=== PATIENT | female | born 1995 | race African-American/Black ===

== ENCOUNTER 2018-05-29 17:33 | Inpatient (IN) | payer OTHER ==
--- NOTE | 2018-05-29 17:41 | PDOC ---
History of Present Illness - General Stated Complaint: DIS-BREATHER Time Seen by Provider: 05/29/18 17:40 - History of Present Illness Initial Comments: 05/29/18 17:57 The patient is a 22 year old female with a history of Bipolar, Schizophrenia, Asthma s/p Trach who presents from [facility] for evaluation of difficulty breathing. The patient reports a several day history of worsening difficulty breathing with associated productive cough. She was noted to be more lethargic at her GA earlier today prompting her presentation to the ED for further evaluation. She otherwise denies fevers, chills, chest pain, nausea, vomiting, abdominal pain, or changes with urination or bowel movements. Past History - Past Medical History Allergies/Adverse Reactions: Allergies Allergy/AdvReac Type Severity Reaction Status Date / Time clonazepam [From Klonopin] Allergy Verified 05/29/18 19:52 olanzapine [From Zyprexa] Allergy Verified 05/29/18 19:22 peanut Allergy Verified 05/29/18 19:22 ziprasidone [From Geodon] Allergy Verified 05/29/18 19:22 Home Medications: Ambulatory Orders Clonazepam 1 tab PO BID 05/29/18 Clozapine [Versacloz] 1 tab PO BID 05/29/18 Depakote 500 mg PO BID 05/29/18 Depo-Provera 1 ml IM 05/29/18 Desmopressin Acetate 1 tab PO HS 05/29/18 Fluticasone Propionate [Flovent Diskus] 100 mcg IH BID 05/29/18 Ipratropium 0.02% Nebulizer 2.5 ml NEB PRN 05/29/18 [place] Carbonate [Lithobid] 1 tab PO DAILY 05/29/18 Magnesium Hydroxide [Milk of Magnesia] 400 mg PO PRN 05/29/18 Pantoprazole Sodium [Protonix -] 40 mg PO DAILY 05/29/18 Sennosides [Senna Lax] 2 tab PO HS 05/29/18 Topiramate [Topamax] 50 mg PO BID 05/29/18 Clozapine [Clozapine Odt] 2 tab PO BID 05/30/18 Levofloxacin [Levaquin] 500 mg PO DAILY #5 tablet 05/31/18 Pisin[place] Carbonate [Eskalith -] 450 mg PO HS tablet.er 05/31/18 Review of Systems - Review of Systems Comments:: 05/29/18 18:00 Constitutional: No fevers, chills, fatigue, malaise HEENT: No Rhinorrhea, nasal congestion, visual changes Cardiovascular: No chest pain, syncope, palpitations, lightheadedness Respiratory: Cough, SOB, No Hemoptysis, Gastrointestinal: No Abdominal pain, Nausea, Vomiting, Constipation, Diarrhea, Melena Genitourinary: No Dysuria, Frequency, Urgency, Hesitancy, Hematuria, Flank pain Musculoskeletal: No Myalgia, arthralgia Skin: No rashes, itching, bruising, pallor Neurologic: No Headache, Dizziness, Numbness, Weakness, or Tingling Psychiatric: No Hallucinations. No SI or HI *Physical Exam - Physical Exam Comments: 05/29/18 18:01 General Appearance: Nourished. In Mild Apparent Distress HEENT: No Pharyngeal Erythema, Tonsillar Exudate, Tonsillar Erythema Neck: No Cervical Lymphadenopathy Respiratory/Chest: Diffuse Rhonchi and Rales bilaterally on exam. Trach in place with purulent productive sputum. No Wheezing Cardiovascular: Regular Rhythm, Regular Rate. No Murmur, Gallops, Rubs Gastrointestinal/Abdominal: Normal Bowel Sounds, Soft. No Guarding, Rebound, Tenderness Musculoskeletal: No CVA Tenderness Extremity: Normal Capillary Refill Integumentary: Normal Color, Dry, Warm Neurologic: Fully Oriented, Alert, Normal Mood/Affect, Normal Response, Heart Score/ECG Review #1 ECG reviewed & interpreted by me at: 18:02 (Sinus Tachycardia) General ECG Interpretation: Sinus Rhythm, Normal Intervals, No acute ischemic changes ED Treatment Course - LABORATORY CBC & Chemistry Diagram: 05/30/18 11:45 05/30/18 11:45 Medical Decision Making - Medical Decision Making 05/29/18 18:03 The patient is a 22 year old female with a history of Bipolar, Schizophrenia, Asthma s/p Trach who presents from [facility] for evaluation of difficulty breathing. Differential includes but is not limited to: Pneumonia, Asthma, Arrhythmia, Infectious, Metabolic Derangement. Given the patient's history and physical exam, it is possible her symptoms are due to a pneumonia. We will obtain a cbc, cmp, lactate, vbg, ua, urine cultures, blood cultures, chest plain film to evaluate further for possible etiologies. We will treat with iv fluids, vanc, and zosyn. We will continue to monitor and reassess while here in the ED. 05/29/18 20:57 CBC demonstrates and elevated wbc. CMP, lactate are unremarkable. Chest plain film demonstrates a possible right lower lobe infiltrate as preliminarily read by ER physician however we will continue to treat the patient clinically as a pneumonia. We believe that she requires admission for further management. We discussed the case with the admitting team who accepted the patient for admission. *DC/Admit/Observation/Transfer Diagnosis at time of Disposition: Pneumonia Qualifiers: Pneumonia type: due to unspecified organism Laterality: unspecified laterality Lung location: unspecified part of lung Qualified Code(s): J18.9 - Pneumonia, unspecified organism - Discharge Dispostion Disposition: SNF FACILITY Condition at time of disposition: Stable Decision to Admit order: Yes - Prescriptions - Referrals - Patient Instructions - Post Discharge Activity
--- NOTE | 2018-05-29 17:47 | PDOC ---
Attending Attestation - HPI HPI: 05/29/18 18:08 The patient is a 22 year old female with a significant PMH of asthma (s/p trach tube), bipolar disorder, and schizophrenia who presents to the emergency department with worsening shortness of breath beginning within the past week. She states she has had increased difficulty breathing with associated productive cough. The patient denies fevers and chills. She denies nausea, vomiting, or diarrhea. She denies dysuria, urgency, frequency, and hematuria. Allergies: NKA <Mayo Daniels - Last Filed: 05/29/18 18:08> - Resident Resident Name: Rhys Zhou - ED Attending Attestation I have performed the following: I have examined & evaluated the patient, The case was reviewed & discussed with the resident, I agree w/resident's findings & plan, Exceptions are as noted - Physicial Exam PE: 06/02/18 10:17 GENERAL: The patient is in no acute distress. ENT: Ears normal, nares patent, oropharynx clear without exudates. Moist mucous membranes. NECK: Normal range of motion, supple, trach in place LUNGS: Rhoncherous breath sounds bilaterally, no wheezing HEART:Regular rate and rhythm, normal S1 and S2 without murmur, rub or gallop. ABDOMEN: Soft, nontender, normoactive bowel sounds. No guarding, no rebound. EXTREMITIES: Normal range of motion, no edema. NEUROLOGICAL: Cranial nerves II through XII grossly intact. Normal speech. No focal neurological deficits. MUSCULOSKELETAL: Back non-tender to palpation, no CVA tenderness SKIN: Warm, Dry, normal turgor, no rashes or lesions noted. - Medical Decision Making 06/02/18 10:18 22 yo F, h/o trach since age 5 presents to the ER with increased shortness of breath and low grade temperature Likely Bronchitis vs. pneumonia Will do: Labs CXR Tylenol 06/02/18 10:19 Laboratory Tests 05/29/18 05/29/18 18:25 18:25 WBC 12.7 H Hgb 12.8 Hct 39.0 Plt Count 328 Neutrophils % (Manual) 59.0 Band Neutrophils % 4.0 Sodium 142 Potassium 4.6 Chloride 116 H Carbon Dioxide 18 L BUN 11 Creatinine 0.9 Random Glucose 101 CXR no consolitation Will give abx Will admit <Luli Mora - Last Filed: 06/02/18 10:20>
[2018-05-29 18:38] LABS: VENOUS PC02 28.2 mmHg (38-52); VENOUS PH 7.38 (7.32-7.42)
[2018-05-29 18:39] LABS: BASO % 1.3 % (0-2.0); EOS % 3.8 % (0-4.5); HEMOGLOBIN 12.8 GM/dL (10.7-15.3); LYMPH % 31.1 % (8-40); MCH 30.4 pg (25.7-33.7); MEAN CELL VOLUME 92.3 fl (80-96); MEAN PLT VOLUME 8.6 fl (7.5-11.1); MONO % 8.5 % (3.8-10.2); NEUT % 55.3 % (42.8-82.8); PLATELET COUNT 328 K/MM3 (134-434); RBC 4.22 M/mm3 (3.60-5.2); RDW 15.4 % (11.6-15.6); WHITE BLOOD COUNT 12.7 K/mm3 (4.0-10.0)
[2018-05-29 18:56] LABS: PROTHROMBIN TIME (PATIENT) 11.3 SEC (9.7-13.0)
[2018-05-29 18:59] LABS: ACTIVATED PTT 33.2 SECONDS (25.2-36.5)
[2018-05-29 19:09] LABS: ALBUMIN 3.3 g/dl (3.4-5.0); ANION GAP 8 (8-16); BLOOD UREA NITROGEN 11 mg/dL (7-18); CALCIUM 8.8 mg/dL (8.5-10.1); CHLORIDE 116 mmol/L (98-107); CO2 18 mmol/L (21-32); CREATININE 0.9 mg/dL (0.55-1.02); GLUCOSE,RANDOM 101 mg/dL (74-106); SGPT/ALT 17 U/L (12-78); SODIUM 142 mmol/L (136-145)
[2018-05-29 19:19] LABS: BILIRUBIN,TOTAL 0.4 mg/dL (0.2-1.0); POTASSIUM 4.6 mmol/L (3.5-5.1)
[2018-05-29 19:20] LABS: ALK PHOS 84 U/L (45-117); SGOT/AST 23 U/L (15-37); TOT PROT 7.8 g/dl (6.4-8.2)
[2018-05-29] MEDS ORDERED: SODIUM CHLORIDE 1,000 ML IV STA (19:24)
[2018-05-29] MEDS ORDERED: VANCOMYCIN 1,500 MG in DEXTROSE 5%-WATER - 500 ML IVPB ONE (19:30)
[2018-05-29] MEDS ORDERED: PIPERACILLIN/TAZOB 4.5 GM 4.5 GM in DEXTROSE 5%-WATER 100 ML IVPB ONE (19:30)
[2018-05-29] MEDS ORDERED: PIPERACILLIN/TAZOB 4.5 GM 4.5 GM/100 ML BAG IVPB ONE (19:45)
--- NOTE | 2018-05-29 20:06 | HP ---
CHIEF COMPLAINT: Difficulty Breathing, Productive Cough, Lethargy PCP: HISTORY OF PRESENT ILLNESS: 22 y/o young woman PMHx of Asthma s/p Trach (age 5), Bipolar, Schizophrenia. Who presents to the ED with difficulty breathing, productive cough and lethargy per [facility] records. Patient reports having increased difficulty breathing with associated productive cough. The patient denies fevers and chills. She denies nausea, vomiting, or diarrhea. She denies dysuria, urgency, frequency, and hematuria. ER course was notable for: (1) WBC 12.7, no shift (2) T Max 99.9 (3) Chest Xray- image ?RLL Recent Travel: None PAST MEDICAL HISTORY: See HPI PAST SURGICAL HISTORY: See HPI Social History: Smoking: Never Alcohol: None Drugs: None Resides in [facility], supportive care Family History: Non-contributory Allergies clonazepam [From Klonopin] Allergy (Verified 05/29/18 19:52) olanzapine [From Zyprexa] Allergy (Verified 05/29/18 19:22) peanut Allergy (Verified 05/29/18 19:22) ziprasidone [From Geodon] Allergy (Verified 05/29/18 19:22) HOME MEDICATIONS: Home Medications Medication Instructions Recorded Clonazepam 0.5 mg PO 05/29/18 Clonazepam 50 mg PO BID 05/29/18 Clozapine [Versacloz] PO BID 05/29/18 Depakote 500 mg PO BID 05/29/18 Desmopressin Acetate PO HS 05/29/18 Fluticasone Propionate [Flovent 100 mcg IH BID 05/29/18 Diskus] [place] Carbonate [Lithobid] PO DAILY 05/29/18 Magnesium Hydroxide [Milk of 400 mg PO 05/29/18 Magnesia] Sennosides [Senna Lax] 8.6 mg PO 05/29/18 Topiramate [Topamax] PO BID 05/29/18 REVIEW OF SYSTEMS CONSTITUTIONAL: Absent: fever, chills, diaphoresis, generalized weakness, malaise, loss of appetite, weight change HEENT: Absent: rhinorrhea, nasal congestion, throat pain, throat swelling, difficulty swallowing, mouth swelling, ear pain, eye pain, visual changes CARDIOVASCULAR: Absent: chest pain, syncope, palpitations, irregular heart rate, lightheadedness , peripheral edema RESPIRATORY: cough, shortness of breath, wheezing Absent: dyspnea with exertion, orthopnea, stridor, hemoptysis GASTROINTESTINAL: Absent: abdominal pain, abdominal distension, nausea, vomiting, diarrhea, constipation, melena, hematochezia GENITOURINARY: Absent: dysuria, frequency, urgency, hesitancy, hematuria, flank pain, genital pain MUSCULOSKELETAL: Absent: myalgia, arthralgia, joint swelling, back pain, neck pain SKIN: Absent: rash, itching, pallor HEMATOLOGIC/IMMUNOLOGIC: Absent: easy bleeding, easy bruising, lymphadenopathy, frequent infections ENDOCRINE: Absent: unexplained weight gain, unexplained weight loss, heat intolerance, cold intolerance NEUROLOGIC: Absent: headache, focal weakness or paresthesias, dizziness, unsteady gait, seizure, mental status changes, bladder or bowel incontinence PSYCHIATRIC: Absent: anxiety, depression, suicidal or homicidal ideation, hallucinations. PHYSICAL EXAMINATION Vital Signs - 24 hr 05/29/18 17:35 Temperature 99.9 F H Pulse Rate 102 H Respiratory 18 Rate Blood Pressure 120/70 O2 Sat by Pulse 99 Oximetry (%) GENERAL: Severely Obese, asleep but arousable, alert and oriented, in no acute distress HEAD: Normal with no signs of trauma. EYES: Pupils equal, round and reactive to light, extraocular movements intact, sclera anicteric, conjunctiva clear. No lid lag. EARS, NOSE, THROAT: Trach, Dry mucous membranes Ears normal, nares patent, oropharynx clear without exudates. NECK: Normal range of motion, supple without lymphadenopathy, JVD, or masses. LUNGS: Breath sounds coarse crackles with scattered wheeze throughout. No accessory muscle use. HEART: Regular rate and rhythm, normal S1 and S2 without murmur, rub or gallop. ABDOMEN: Obese, soft, nontender, not distended, normoactive bowel sounds, no guarding, no rebound, no masses. No hepatomegaly or splenomegaly. MUSCULOSKELETAL: Normal range of motion at all joints. No bony deformities or tenderness. No CVA tenderness. UPPER EXTREMITIES: 2+ pulses, warm, well-perfused. No cyanosis. No clubbing. No peripheral edema. LOWER EXTREMITIES: 2+ pulses, warm, well-perfused. No calf tenderness. No peripheral edema. NEUROLOGICAL: Cranial nerves II-XII intact. Normal speech. Gait not observed. PSYCHIATRIC: Cooperative. Good eye contact. Appropriate mood and affect. SKIN: Warm, dry, normal turgor, no rashes or lesions noted, normal capillary refill. Laboratory Results - last 24 hr 05/29/18 05/29/18 05/29/18 18:25 18:25 18:25 WBC 12.7 H RBC 4.22 Hgb 12.8 Hct 39.0 MCV 92.3 MCH 30.4 MCHC 33.0 RDW 15.4 Plt Count 328 MPV 8.6 Absolute Neuts (auto) 7.0 Neutrophils % 55.3 Lymphocytes % 31.1 Monocytes % 8.5 Eosinophils % 3.8 Basophils % 1.3 Nucleated RBC % 0 PT with INR 11.30 INR 1.00 PTT (Actin FS) 33.2 VBG pH 7.38 POC VBG pCO2 28.2 L POC VBG pO2 133.0 H Mixed VBG HCO3 16.1 L Sodium Potassium Chloride Carbon Dioxide Anion Gap BUN Creatinine Creat Clearance w eGFR Random Glucose Lactic Acid Calcium Total Bilirubin AST ALT Alkaline Phosphatase Troponin I Total Protein Albumin Serum , Qual 05/29/18 05/29/18 05/29/18 18:25 18:25 18:30 WBC RBC Hgb Hct MCV MCH MCHC RDW Plt Count MPV Absolute Neuts (auto) Neutrophils % Lymphocytes % Monocytes % Eosinophils % Basophils % Nucleated RBC % PT with INR INR PTT (Actin FS) VBG pH POC VBG pCO2 POC VBG pO2 Mixed VBG HCO3 Sodium 142 Potassium 4.6 Chloride 116 H Carbon Dioxide 18 L Anion Gap 8 BUN 11 Creatinine 0.9 Creat Clearance w eGFR > 60 Random Glucose 101 Lactic Acid 1.7 Calcium 8.8 Total Bilirubin 0.4 AST 23 ALT 17 Alkaline Phosphatase 84 Troponin I Total Protein 7.8 Albumin 3.3 L Serum , Qual Negative 05/29/18 18:30 WBC RBC Hgb Hct MCV MCH MCHC RDW Plt Count MPV Absolute Neuts (auto) Neutrophils % Lymphocytes % Monocytes % Eosinophils % Basophils % Nucleated RBC % PT with INR INR PTT (Actin FS) VBG pH POC VBG pCO2 POC VBG pO2 Mixed VBG HCO3 Sodium Potassium Chloride Carbon Dioxide Anion Gap BUN Creatinine Creat Clearance w eGFR Random Glucose Lactic Acid Calcium Total Bilirubin AST ALT Alkaline Phosphatase Troponin I < 0.02 Total Protein Albumin Serum , Qual ASSESSMENT/PLAN: 22 y/o young woman PMHx of: Asthma s/p Trach (age 5), Bipolar, Schizophrenia. Admitted for Pneumonia for further evaluation of their emergent condition. Problem List - Problem (1) Pneumonia Assessment/Plan: - Likely secondary to aspiration - Chest Xray- Image ?RLLL, awaiting official report - WBC 12.7 no L shift, LA-nl - VBG- 7.38/28.2/133 - Blood Cultures, Sputum Culture, Urine Legionella-pending - Given Zosyn and Vancomcyin for MDR/Pseudomonal coverage, will continue - Appreciate ID consult - Monitor CBC, BMP - Monitor vitals Code(s): J18.9 - PNEUMONIA, UNSPECIFIED ORGANISM Qualifiers: Pneumonia type: due to unspecified organism Laterality: unspecified laterality Lung location: unspecified part of lung Qualified Code(s): J18.9 - Pneumonia, unspecified organism (2) Asthma Assessment/Plan: - s/p Trach - Maintain Spo2> 93% - Appreciate Pulm consult - Duonebs - Continue home meds Code(s): J45.909 - UNSPECIFIED ASTHMA, UNCOMPLICATED (3) Tracheostomy care Assessment/Plan: - Aspiration Precautions - Trach and oral suctioning Q shift and prn - Change inner cannula Shiley #6, cuffless QD and prn Code(s): Z43.0 - ENCOUNTER FOR ATTENTION TO TRACHEOSTOMY (4) Bipolar disorder Assessment/Plan: - stable -Continue home meds Code(s): F31.9 - BIPOLAR DISORDER, UNSPECIFIED (5) Schizophrenia Assessment/Plan: - stable - Continue home meds Code(s): F20.9 - SCHIZOPHRENIA, UNSPECIFIED (6) DVT prophylaxis Assessment/Plan: - SCDs - Heparin SQ Code(s): [id number] - Visit type - Emergency Visit Emergency Visit: Yes ED Registration Date: 05/29/18 Care time: The patient presented to the Emergency Department on the above date and was hospitalized for further evaluation of their emergent condition. - New Patient This patient is new to me today: Yes Date on this admission: 05/29/18 - Critical Care Critical Care patient: No Hospitalist Screening - Colonoscopy Questionnaire Colonoscopy Questionnaire: Colonoscopy Questionnaire - Patient: 50 - 75 years old and never had a screening colonoscopy: Unknown History of colon or rectal polyps, or CA: Unknown History of IBD, Crohn's disease or UC: Unknown History of abdominal radiation therapy as a child: Unknown - Relative: 1 with colon or rectal CA, or polyps at age 60 or younger: Unknown Colon or rectal CA diagnosed at age 45 or younger: Unknown Multiple relatives with colon or rectal CA: Unknown - Outcome: Screening Result: Negative Screen
[2018-05-29 20:09] LABS: URINE APPEARANCE CLEAR; URINE BILIRUBIN NEGATIVE (<2.0 mg/dL); URINE COLOR YELLOW; URINE GLUCOSE (UA) NEGATIVE (NEGATIVE); URINE KETONE NEGATIVE (NEGATIVE); URINE LEUK ESTERASE NEGATIVE (NEGATIVE); URINE NITRITE NEGATIVE (NEGATIVE); URINE PROTEIN 1+ (NEGATIVE)
[2018-05-29] MEDS ORDERED: ACETAMINOPHEN 1000 MG/100 ML VIAL (NON FORMULARY) IVPB ONE (20:09)
[2018-05-29 20:13] LABS: EPI CELLS RARE /HPF (FEW); URINE BACTERIA RARE /hpf (NONE SEEN); URINE MUCUS RARE
[2018-05-29] MEDS ORDERED: ACETAMINOPHEN 325 MG TABLET (FP) ONE (20:13)
[2018-05-29] MEDS ORDERED: ACETAMINOPHEN 325 MG TABLET (FP) PO ONE (20:14)
[2018-05-29 20:58] LABS: PLATELET ESTIMATE ADEQUATE
[2018-05-29] MEDS ORDERED: LITHIUM CARBONATE 150 MG CAPSULE PO SCH ×2 (22:00→23:45)
[2018-05-29] MEDS ORDERED: ACETAMINOPHEN 325 MG TABLET (FP) PO PRN (22:44)
[2018-05-29] MEDS ORDERED: ALBUTEROL SO4 0.083% IH SOL 2.5 MG/3 ML VIAL.NEB. NEB PRN (22:44)
[2018-05-29] MEDS ORDERED: ALBUTEROL SO4 2.5/IPRATROPIUM 0.5 INH SOL 3 ML VIAL.NEB. NEB PRN (22:47)
[2018-05-29] MEDS ORDERED: MAGNESIUM HYDROX 2400MG/30ML ORAL SUSPENSION 30 ML CUP PO PRN (23:14)
[2018-05-30] MEDS: HEPARIN NA (PORCINE) 5,000 UNITS/ML 1ML VIAL SQ SCH ×4 (00:29→21:25)
[2018-05-30] MEDS: DESMOPRESSIN ACETATE 0.2 MG TABLET PO SCH (00:43)
[2018-05-30] MEDS: TOPIRAMATE 25 MG TABLET (FP) PO SCH ×3 (00:43→21:22)
[2018-05-30] MEDS: LITHIUM CARBONATE 450 MG TABLET.ER PO SCH ×2 (00:44→21:24)
[2018-05-30] MEDS: DIVALPROEX SODIUM 500 MG TABLET E.C. PO SCH ×3 (00:44→21:23)
[2018-05-30] MEDS ORDERED: PT OWN MED DRAWER 7, Y5N ONE ×3 (00:47→21:15)
[2018-05-30 01:39] VITALS: BMI 40.9
[2018-05-30] MEDS ORDERED: DEXTROSE 5%-WATER 100 ML IVPB ONE (03:02)
[2018-05-30] MEDS ORDERED: PIPERACILLIN/TAZOBACTAM 4.5 GM VIAL IVPB ONE (03:02)
[2018-05-30] MEDS: PIPERACILLIN/TAZOB 4.5 GM 4.5 GM in DEXTROSE 5%-WATER 100 ML IVPB SCH ×3 (03:13→09:47)
[2018-05-30] MEDS ORDERED: VANCOMYCIN 1,000 MG in DEXTROSE 5%-WATER - 250 ML IVPB ONE (09:00)
--- NOTE | 2018-05-30 09:11 | PN ---
Progress Note (short form) - Note Progress Note: ID Full note dictated Alert NAD Brought with Increasing respiratory secretions from trach SOB Afebrile Selected Entries 05/29/18 05/30/18 21:12 03:00 Temperature 98.1 F Pulse Rate 68 Respiratory 20 Rate Blood Pressure 128/62 O2 Sat by Pulse 99 Oximetry (%) Oxygen Delivery Room Air Method Microbiology Laboratory Tests 05/29/18 05/29/18 05/29/18 18:25 18:25 18:30 WBC 12.7 H Hct 39.0 Plt Count 328 BUN 11 Creatinine 0.9 Lactic Acid Ur Leukocyte Esterase Negative Urine RBC (Auto) <1 05/29/18 18:30 WBC Hct Plt Count BUN Creatinine Lactic Acid 1.7 Ur Leukocyte Esterase Urine RBC (Auto) Assessment Trach dependent ? Tracheitis bronchitis No pneumonia Plan Levofloxacin 500mg IVPB Hue GASTON Problem List - Problems (1) Tracheitis Code(s): J04.10 - ACUTE TRACHEITIS WITHOUT OBSTRUCTION (2) Asthma Code(s): J45.909 - UNSPECIFIED ASTHMA, UNCOMPLICATED (3) Tracheostomy care Code(s): Z43.0 - ENCOUNTER FOR ATTENTION TO TRACHEOSTOMY
[2018-05-30] MEDS: PANTOPRAZOLE 40 MG TABLET (FP) PO SCH (09:39)
--- NOTE | 2018-05-30 09:42 | CONS ---
DATE OF CONSULTATION: DATE OF DICTATION: 05/30/2018 This is a 22-year-old female from the [facility] who is apparently chronic tracheostomy dependent with a history of bipolar and schizophrenia, brought to the emergency room with increasing secretions from the tracheostomy and shortness of breath over the last week. She was not febrile here and I am asked to see her for further antibiotics after her initial chest x-ray was noted to show no evidence of acute disease. She was given vancomycin and Zosyn on admission. PAST MEDICAL HISTORY: Asthma, tracheostomy, bipolar, schizophrenia. ALLERGIES: KLONOPIN, ZYPREXA. MEDICATIONS: Flovent disk. SOCIAL HISTORY: retirement resident, nonsmoker. FAMILY HISTORY: Unobtainable. REVIEW OF SYSTEMS: Respiratory: Chronic tracheostomy dependency; shortness of breath on admission , not currently. Cardiac: No history of valvular heart disease, chest pain, palpitations. Gastrointestinal: No abdominal pain, vomiting, diarrhea. Genitourinary: No dysuria, hematuria, urinary frequency. PHYSICAL EXAMINATION: Vital Signs: Temperature 98.1, pulse 68, blood pressure 128/62, respirations 20. Neck: Supple with a tracheostomy. Lungs: Clear to percussion; bilateral rhonchi. Heart: S1, S2, regular rhythm without audible murmur. Abdomen: Soft, nontender without hepatosplenomegaly. Extremities: Without clubbing, cyanosis, edema. White count is 12.7, hemoglobin 12.8, platelets of 328 with 4% bands noted on the differential. INR of 1.0. BUN 11, creatinine 0.9. Urinalysis with 3 white cells. O2 saturation on admission 99% on room air. ASSESSMENT: A 22-year-old female with tracheostomy presents with shortness of breath and increasing secretions from the tracheostomy site, possible localized tracheal infection and/or bronchitis. No evidence of pneumonia. PLAN: Levofloxacin 500 mg q.24 pending cultures with rapid switch to oral Levoflox. YOSELIN LESTER M.D. [id number] MTDD
[2018-05-30] MEDS ORDERED: VANCOMYCIN 1,000 MG in DEXTROSE 5%-WATER - 250 ML IVPB SCH (10:00)
--- NOTE | 2018-05-30 10:09 | EKG ---
Test Reason : Blood Pressure : / mmHG Vent. Rate : 100 BPM Atrial Rate : 100 BPM P-R Int : 148 ms QRS Dur : 080 ms QT Int : 344 ms P-R-T Axes : 043 -03 030 degrees QTc Int : 443 ms NORMAL SINUS RHYTHM POSSIBLE LEFT ATRIAL ENLARGEMENT LEFT VENTRICULAR HYPERTROPHY NONSPECIFIC T WAVE ABNORMALITY ABNORMAL ECG NO PREVIOUS ECGS AVAILABLE Confirmed by SRIDHAR SHANE MD ([id number]) on 05/30/2018 10:09:18 AM Referred By: Confirmed By:SRIDHAR SHANE MD
[2018-05-30 12:05] LABS: BASO % 2.3 % (0-2.0); EOS % 3.9 % (0-4.5); HEMATOCRIT 37.4 % (32.4-45.2); HEMOGLOBIN 12.4 GM/dL (10.7-15.3); LYMPH % 29.4 % (8-40); MCH 30.7 pg (25.7-33.7); MCHC 33.3 g/dl (32.0-36.0); MEAN CELL VOLUME 92.2 fl (80-96); MEAN PLT VOLUME 8.2 fl (7.5-11.1); MONO % 10.3 % (3.8-10.2); NEUT % 54.1 % (42.8-82.8); PLATELET COUNT 331 K/MM3 (134-434); RBC 4.06 M/mm3 (3.60-5.2); RDW 15.4 % (11.6-15.6); WHITE BLOOD COUNT 9.9 K/mm3 (4.0-10.0)
[2018-05-30] MEDS: LITHIUM CARBONATE 300 MG CAPSULE (FP) PO SCH (12:05)
[2018-05-30 12:33] LABS: ANION GAP 6 (8-16); BLOOD UREA NITROGEN 10 mg/dL (7-18); CALCIUM 9.2 mg/dL (8.5-10.1); CHLORIDE 116 mmol/L (98-107); CO2 23 mmol/L (21-32); CREATININE 0.7 mg/dL (0.55-1.02); GLUCOSE,RANDOM 84 mg/dL (74-106); POTASSIUM 4.3 mmol/L (3.5-5.1); SODIUM 145 mmol/L (136-145)
--- NOTE | 2018-05-30 12:58 | CON.PULM ---
Consult Consult Specialty:: PULM/CCM Referred by:: DANIAL Reason for Consultation:: SOB - History of Present Illness Chief Complaint: SOB History of Present Illness: 22 F, apparent history of asthma since . Reports she was intubated for "while" after she was born. S/P Trach at age 5Z (?), Bipolar D/O, and Schizophrenia. Admitted via the ER due to difficulty of breathing, productive cough, and lethargy. She has not required mechanical ventilation since she was a small child. She does report throat pain and discomfort that is new. Her only respiratory medication at home is Albuterol. She is not steroid dependent. No hemoptysis. No travel history or sick contacts. CXR: Clear - History Source History Provided By: Patient Limitations to Obtaining History: Poor Historian - Past Medical History Pulmonary: Yes: Asthma, Previously Intubated, Other (Trached ) - Alcohol/Substance Use Hx Alcohol Use: No - Smoking History Smoking history: Never smoked Home Medications - Allergies Allergies/Adverse Reactions: Allergies Allergy/AdvReac Type Severity Reaction Status Date / Time clonazepam [From Klonopin] Allergy Verified 05/29/18 19:52 olanzapine [From Zyprexa] Allergy Verified 05/29/18 19:22 peanut Allergy Verified 05/29/18 19:22 ziprasidone [From Geodon] Allergy Verified 05/29/18 19:22 - Home Medications Home Medications: Ambulatory Orders Clonazepam 1 tab PO BID 05/29/18 Clozapine [Versacloz] 1 tab PO BID 05/29/18 Depakote 500 mg PO BID 05/29/18 Depo-Provera 1 ml IM 05/29/18 Desmopressin Acetate 1 tab PO HS 05/29/18 Fluticasone Propionate [Flovent Diskus] 100 mcg IH BID 05/29/18 Ipratropium 0.02% Nebulizer 2.5 ml NEB PRN 05/29/18 [place] Carbonate 300 mg PO HS 05/29/18 [place] Carbonate [Lithobid] 1 tab PO DAILY 05/29/18 Magnesium Hydroxide [Milk of Magnesia] 400 mg PO PRN 05/29/18 Pantoprazole Sodium [Protonix -] 40 mg PO DAILY 05/29/18 Sennosides [Senna Lax] 2 tab PO HS 05/29/18 Topiramate [Topamax] 50 mg PO BID 05/29/18 Clozapine [Clozapine Odt] 2 tab PO BID 05/30/18 Review of Systems - Review of Systems Constitutional: reports: Lethargy, Malaise, Weakness. denies: Chills, Fever, Night Sweats, Unintentional Wgt. Loss Eyes: reports: No Symptoms HENT: reports: No Symptoms Neck: reports: Tenderness, Other (Trach) Cardiovascular: reports: Shortness of Breath. denies: Chest Pain, Edema, Palpitations Respiratory: reports: Cough, Hemoptysis, SOB, SOB on Exertion, Wheezing. denies : Snoring Gastrointestinal: reports: No Symptoms Genitourinary: reports: No Symptoms Breasts: reports: No Symptoms Reported Musculoskeletal: reports: No Symptoms Integumentary: reports: No Symptoms Neurological: reports: No Symptoms Endocrine: reports: No Symptoms Hematology/Lymphatic: reports: No Symptoms Psychiatric: reports: Other (Bipolar / Schizophrenia) Physical Exam Vital Sings: Vital Signs Temperature 98.1 F 05/30/18 03:00 Pulse Rate 68 05/30/18 03:00 Respiratory Rate 20 05/30/18 03:00 Blood Pressure 128/62 05/30/18 03:00 O2 Sat by Pulse Oximetry (%) 99 05/29/18 21:12 Constitutional: Yes: No Distress, Obese Eyes: Yes: Conjunctiva Clear, EOM Intact HENT: Yes: Atraumatic, Normocephalic Neck: Yes: Trachea Midline, Other (Trach intact ) Respiratory: Yes: CTA Bilaterally, Cough, Diminished. No: Accessory Muscle Use , On Nasal O2, Rales, Rhonchi, Stridor, Tachypnea, Wheezes ...Inspection: Yes: WNL ...Clubbing: No Gastrointestinal: Yes: Normal Bowel Sounds, Soft, Abdomen, Obese Renal/: Yes: WNL Musculoskeletal: Yes: WNL Extremities: Yes: WNL Edema: No Peripheral Pulses WNL: Yes Integumentary: Yes: WNL Neurological: Yes: WNL, Alert, Oriented ...Motor Strength: WNL Psychiatric: Yes: WNL, Alert, Oriented Labs: CBC, BMP 05/30/18 11:45 05/30/18 11:45 Imaging - Results Chest X-ray: Report Reviewed, Image Reviewed Problem List - Problems (1) Asthma Code(s): J45.909 - UNSPECIFIED ASTHMA, UNCOMPLICATED (2) Bipolar disorder Code(s): F31.9 - BIPOLAR DISORDER, UNSPECIFIED (3) Schizophrenia Code(s): F20.9 - SCHIZOPHRENIA, UNSPECIFIED (4) Tracheitis Code(s): J04.10 - ACUTE TRACHEITIS WITHOUT OBSTRUCTION (5) Tracheostomy care Code(s): Z43.0 - ENCOUNTER FOR ATTENTION TO TRACHEOSTOMY Assessment/Plan Agree with Levaquin per ID O2 as needed Can monitor off systemic steroids for now BD TX as ordered Suction as needed Follow cultures VTE prophylaxis If stable in AM, no Pulmonary contraindication for D/C Dr Maier
[2018-05-30] MEDS: ALBUTEROL SO4 0.083% IH SOL 2.5 MG/3 ML VIAL.NEB. NEB SCH ×2 (14:45→20:50)
--- NOTE | 2018-05-30 15:40 | PN ---
Progress Note, Physician History of Present Illness: patient seen and examined. Awake and comfortable. Afebrile. Denies chest pain. Denies shortness of breath. Feels better than yesterday. Pulmonary and ID consults noted and appreciated. - Current Medication List Current Medications: Active Medications Acetaminophen (Tylenol -) 650 mg PO Q6H PRN PRN Reason: FEVER Albuterol Sulfate (Ventolin 0.083% Nebulizer Soln -) 1 amp NEB RTID [facility] Last Admin: 05/30/18 14:45 Dose: 1 amp Albuterol/Ipratropium (Duoneb -) 1 amp NEB Q6H PRN PRN Reason: SHORTNESS OF BREATH Desmopressin Acetate (Ddavp -) 0.2 mg PO [facility] Last Admin: 05/30/18 00:43 Dose: Not Given Divalproex Sodium (Depakote -) 500 mg PO BID [facility] Last Admin: 05/30/18 12:05 Dose: 500 mg Heparin Sodium (Porcine) (Heparin -) 5,000 unit SQ TID [facility] Last Admin: 05/30/18 15:00 Dose: Not Given Levofloxacin (Levaquin 500 Mg Premixed Ivpb -) 500 mg in 100 mls @ 100 mls/hr IVPB DAILY [facility]; Protocol Last Admin: 05/30/18 09:38 Dose: 100 mls/hr [place] Carbonate (Eskalith -) 300 mg PO DAILY@0800 [facility] Last Admin: 05/30/18 12:05 Dose: 300 mg [place] Carbonate (Eskalith -) 450 mg PO [facility] Last Admin: 05/30/18 00:44 Dose: Not Given Magnesium Hydroxide (Milk Of Magnesia -) 30 ml PO DAILY PRN PRN Reason: CONSTIPATION Mometasone Furoate (Asmanex 220mcg -) 1 puff IH [facility] Pantoprazole Sodium (Protonix -) 40 mg PO DAILY [facility] Last Admin: 05/30/18 09:39 Dose: 40 mg Senna (Senna -) 1 tab PO [facility] Topiramate (Topamax -) 50 mg PO BID [facility] Last Admin: 05/30/18 09:39 Dose: 50 mg - Objective Vital Signs: Vital Signs Temperature 98.2 F 05/30/18 14:20 Pulse Rate 98 H 05/30/18 14:20 Respiratory Rate 24 05/30/18 14:20 Blood Pressure 127/60 05/30/18 14:20 O2 Sat by Pulse Oximetry (%) 99 05/29/18 21:12 Constitutional: Yes: No Distress, Calm Eyes: Yes: Conjunctiva Clear Neck: Yes: Supple, Other (Status post trach) Cardiovascular: Yes: Regular Rate and Rhythm Respiratory: Yes: CTA Bilaterally Gastrointestinal: Yes: Soft Edema: No Neurological: Yes: Alert Labs: CBC, BMP 05/30/18 11:45 05/30/18 11:45 INR, PTT INR 1.00 (0.82-1.09) 05/29/18 18:25 Problem List - Problems (1) Asthma Code(s): J45.909 - UNSPECIFIED ASTHMA, UNCOMPLICATED (2) Bipolar disorder Code(s): F31.9 - BIPOLAR DISORDER, UNSPECIFIED (3) Schizophrenia Code(s): F20.9 - SCHIZOPHRENIA, UNSPECIFIED (4) Tracheitis Code(s): J04.10 - ACUTE TRACHEITIS WITHOUT OBSTRUCTION (5) Tracheostomy care Code(s): Z43.0 - ENCOUNTER FOR ATTENTION TO TRACHEOSTOMY Assessment/Plan clinically stable Continue present care If stable--- will discharge on by mouth antibiotics tomorrow Discussed with nursing staff also
[2018-05-30] MEDS ORDERED: MOMETASONE FUROATE 220 MCG/IH INHALER IH SCH (22:00)
[2018-05-30] MEDS ORDERED: SENNOSIDES 8.6MG TABLET (FP) PO SCH (22:00)
[2018-05-31] MEDS: DESMOPRESSIN ACETATE 0.2 MG TABLET PO SCH (00:58)
[2018-05-31] MEDS: HEPARIN NA (PORCINE) 5,000 UNITS/ML 1ML VIAL SQ SCH (05:22)
[2018-05-31] MEDS: ALBUTEROL SO4 0.083% IH SOL 2.5 MG/3 ML VIAL.NEB. NEB SCH (07:30)
[2018-05-31] MEDS ORDERED: PT OWN MED DRAWER 7, Y5N ONE ×2 (08:45→09:49)
[2018-05-31] MEDS: TOPIRAMATE 25 MG TABLET (FP) PO SCH (09:55)
[2018-05-31] MEDS: PANTOPRAZOLE 40 MG TABLET (FP) PO SCH (09:56)
[2018-05-31] MEDS: DIVALPROEX SODIUM 500 MG TABLET E.C. PO SCH (09:57)
[2018-05-31] MEDS: LITHIUM CARBONATE 300 MG CAPSULE (FP) PO SCH (09:57)
--- NOTE | 2018-05-31 10:09 | DS ---
Physical Examination Vital Signs: Vital Signs Temperature 99.1 F 05/31/18 06:00 Pulse Rate 90 05/31/18 06:00 Respiratory Rate 20 05/31/18 06:00 Blood Pressure 125/57 05/31/18 06:00 O2 Sat by Pulse Oximetry (%) 100 05/30/18 21:00 Findings/Remarks: comfortable walking in [address] afebrile Constitutional: Yes: No Distress, Obese Neck: Yes: Supple, Other (s/p trach) Cardiovascular: Yes: Regular Rate and Rhythm Respiratory: Yes: CTA Bilaterally Gastrointestinal: Yes: Soft Edema: No Labs: CBC, BMP 05/30/18 11:45 05/30/18 11:45 Discharge Summary Reason For Visit: PNEUMONIA Current Active Problems Asthma (Acute) Bipolar disorder (Acute) DVT prophylaxis (Acute) Pneumonia (Acute) Schizophrenia (Acute) Tracheitis (Acute) Tracheostomy care (Acute) Hospital Course: admitted with sob found to have tracheolitus stable for d/c on abx discussed with nursing staff lithium levels to be monitored in retirement meds reconcilled Condition: Stable - Instructions Disposition: ALF FACILITY - Home Medications Comprehensive Discharge Medication List: Ambulatory Orders Clonazepam 1 tab PO BID 05/29/18 Clozapine [Versacloz] 1 tab PO BID 05/29/18 Depakote 500 mg PO BID 05/29/18 Depo-Provera 1 ml IM 05/29/18 Desmopressin Acetate 1 tab PO HS 05/29/18 Fluticasone Propionate [Flovent Diskus] 100 mcg IH BID 05/29/18 Ipratropium 0.02% Nebulizer 2.5 ml NEB PRN 05/29/18 [place] Carbonate [Lithobid] 1 tab PO DAILY 05/29/18 Magnesium Hydroxide [Milk of Magnesia] 400 mg PO PRN 05/29/18 Pantoprazole Sodium [Protonix -] 40 mg PO DAILY 05/29/18 Sennosides [Senna Lax] 2 tab PO HS 05/29/18 Topiramate [Topamax] 50 mg PO BID 05/29/18 Clozapine [Clozapine Odt] 2 tab PO BID 05/30/18 Levofloxacin [Levaquin] 500 mg PO DAILY #5 tablet 05/31/18 [place] Carbonate [Eskalith -] 450 mg PO HS tablet.er 05/31/18
[2018-05-31 10:15] VITALS: BP 118/77; TEMP 99
[2018-05-31 11:22] VITALS: PULSE 127
== END 2018-05-31 13:57 | DRG 144 ==
LOC: JER 17:33 → JERBED 19:50 → J5S 21:48
PROVIDERS: ADMIT Internal Medicine; ATTEND Internal Medicine
DX: J04.10 Acute tracheitis without obstruction (principal); Z43.0 Encounter for attention to tracheostomy; E66.01 Morbid (severe) obesity due to excess calories; Z68.41 Body mass index [BMI] 40.0-44.9, adult; F31.9 Bipolar disorder, unspecified; F20.9 Schizophrenia, unspecified; J45.909 Unspecified asthma, uncomplicated; Z91.010 Allergy to peanuts
CPT/HCPCS: 36415; 71045-TC-FY; 80048; 80053; 80164; 81003; 81015; 82803; 83605; 84484; 84703; 85025; 85610; 85730; 87040; 87070; 87077; 87086; 87205; 93005; 93010; 94640; 99282-25; G0480; J1644; J7030

== ENCOUNTER 2018-08-11 23:36 | Emergency (ER) | payer OTHER ==
[2018-08-12 00:54] VITALS: BP 126/63; PULSE 98; TEMP 98.5; BMI 48.2
--- NOTE | 2018-08-12 00:56 | PDOC ---
History of Present Illness - General Chief Complaint: Trach Tube Replacement Stated Complaint: TRACH PROBLEM Time Seen by Provider: 08/12/18 00:36 - History of Present Illness Initial Comments: 08/12/18 01:07 The patient is a 22 year old female, with a significant past medical history of Bipolar, Schizophrenia, Asthma (s/p Trach), who presents to the emergency department for, inner cannula replacement. As per [facility] nurse Thomas, the patient constantly removes her inner cannula. They report that the respiratory therapist felt resistance when replacing it and did not feel comfortable continuing due to lack of physician on premisesThe patient has a 6.0 uncuffed shiley tracheostomy tube. While in the ED, the patient is staturating at 98% RA. She denies any symptoms. She denies recent fevers, chills, headache or dizziness. She denies recent nausea, vomit, diarrhea or constipation. She denies recent dysuria, frequency, urgency or hematuria. She denies recent chest pain or shortness of breath. Allergies: Clonazepam, olanzapine, peanut, ziprasidone Past surgical history: S/p tracheostomy. Past History - Past Medical History Allergies/Adverse Reactions: Allergies Allergy/AdvReac Type Severity Reaction Status Date / Time clonazepam [From Klonopin] Allergy Verified 05/29/18 19:52 olanzapine [From Zyprexa] Allergy Verified 05/29/18 19:22 peanut Allergy Verified 05/29/18 19:22 ziprasidone [From Geodon] Allergy Verified 05/29/18 19:22 Home Medications: Ambulatory Orders Clonazepam 1 tab PO BID 05/29/18 Depakote 500 mg PO BID 05/29/18 Depo-Provera 1 ml IM MONTHLY 05/29/18 Desmopressin Acetate 1 tab PO HS 05/29/18 Fluticasone Propionate [Flovent Diskus] 100 mcg IH BID 05/29/18 Ipratropium 0.02% Nebulizer 2.5 ml NEB PRN 05/29/18 [place] Carbonate [Lithobid] 1 tab PO DAILY 05/29/18 Magnesium Hydroxide [Milk of Magnesia] 400 mg PO PRN 05/29/18 Pantoprazole Sodium [Protonix -] 40 mg PO DAILY 05/29/18 Sennosides [Senna Lax] 2 tab PO HS 05/29/18 Topiramate [Topamax] 50 mg PO BID 05/29/18 Clozapine [Clozapine Odt] 2 tab PO BID 05/30/18 [place] Carbonate [Eskalith -] 450 mg PO HS tablet.er 05/31/18 Acetaminophen [Pain Relief] 650 mg PO PRN PRN 08/12/18 Divalproex Sodium [Depakote] 250 mg PO DAILY 08/12/18 Ibuprofen [Advil -] 200 mg PO QID PRN 08/12/18 Methyl Salicylate/Menth/Camph [[place] Ultra Strength Cream] 57 gm TP BID Metoprolol Succinate 25 mg PO DAILY 08/12/18 COPD: No Diabetes: Yes GI Disorders: Yes (reflux) Psychiatric Problems: Yes (schizophrenia, bipolar) - Suicide/Smoking/Psychosocial Hx Smoking History: Never smoked Hx Alcohol Use: No Drug/Substance Use Hx: No Review of Systems - Review of Systems Comments:: 08/12/18 01:08 GENERAL/CONSTITUTIONAL: No fever or chills. No weakness. HEAD, EYES, EARS, NOSE AND THROAT: No change in vision. No ear pain or discharge. No sore throat. GASTROINTESTINAL: No nausea, vomiting, diarrhea or constipation. GENITOURINARY: No dysuria, frequency, or change in urination. CARDIOVASCULAR: No chest pain or shortness of breath. RESPIRATORY: No cough, wheezing, or hemoptysis. MUSCULOSKELETAL: No joint or muscle swelling or pain. No neck or back pain. SKIN: No rash NEUROLOGIC: No headache, vertigo, loss of consciousness, or change in strength/ sensation. ENDOCRINE: No increased thirst. No abnormal weight change. HEMATOLOGIC/LYMPHATIC: No anemia, easy bleeding, or history of blood clots. ALLERGIC/IMMUNOLOGIC: No hives or skin allergy. *Physical Exam - Vital Signs Last Vital Signs Temp Pulse Resp BP Pulse Ox 98.5 F 98 H 19 126/63 97 08/11/18 23:36 08/11/18 23:36 08/11/18 23:36 08/11/18 23:36 08/11/18 23:36 - Physical Exam Comments: 08/12/18 01:08 GENERAL: Awake, alert, and fully oriented, in no acute distress EYES: PERRLA, EOMI, sclera anicteric, conjunctiva clear ENT: Auricles normal inspection, hearing grossly normal, nares patent, oropharynx clear without exudates. Moist mucosa NECK: trach in place LUNGS: Breath sounds equal, clear to auscultation bilaterally. No wheezes, and no crackles HEART: Regular rate and rhythm, normal S1 and S2, no murmurs, rubs or gallops ABDOMEN: Soft, nontender, normoactive bowel sounds. No guarding, no rebound. No masses EXTREMITIES: Normal range of motion, no edema. No clubbing or cyanosis. No cords, erythema, or tenderness NEUROLOGICAL: Cranial nerves intact, negative pronator drift, 5/5 strength in all 4 extremities, normal sensation to light touch in all 4 extremities, normal cerebellar exam, normal gait, normal reflexes and tone SKIN: Warm, Dry, normal turgor, no rashes or lesions noted. Medical Decision Making - Medical Decision Making 08/12/18 01:06 22yo F hx asthma s/p trach 17yrs ago presents to the ED with "partially clogged trach." Pt has 6.0 uncuffed shiley. Pt is satting 99% in no resp distress. Lungs are clear on exam. Some resistance when replacing inner cannula. Pt deep suctioned by respiratory and 4.0 inner cannula placed without resistance but pt removed it and stated it was uncomfortable. Trach noted to have dried secretions on inside which is likely reason there is resistance to inner cannula. Decision was made to switch out trach. 6.0 UC shiley was switched with a 6.0 UC portex with no complications. Post trach XR ordered. 08/12/18 03:21 CXR with good placement on my read PT satting 100% in NAD Pt asking for food, given apple sauce WIll DC back to [facility] I discussed the physical exam findings, ancillary test results and final diagnoses with the patient. I answered all of the patient's questions. The patient was satisfied with the care received and felt comfortable with the discharge plan and treatment plan. The patient will call their primary care physician within 24 hours to arrange follow-up and will return to the Emergency Department with any new, persistent or worsening symptoms. *DC/Admit/Observation/Transfer Diagnosis at time of Disposition: Tracheostomy complication - Discharge Dispostion Disposition: HOME Condition at time of disposition: Stable Decision to Admit order: No - Referrals - Patient Instructions Printed Discharge Instructions: How to Take Care of a Tracheostomy Additional Instructions: We changed your tracheostomy up from a 6.0 uncuffed Shiley to a 6.0 uncuffed Portex. Please keep the inner cannula inside. Return to the emergency department if you have any new, worsening, or concerning symptoms. - Post Discharge Activity - Attestations Physician Attestion: 08/12/18 03:24 I, Dr. Kevin To MD, attest that this document has been prepared under my direction and personally reviewed by me in its entirety. I further attest, that it accurately reflects all work, treatment, procedures and medical decision -making performed by me.
== END 2018-08-12 04:59 | disposition home or self-care (01) ==
LOC: JER 23:36
DX: J95.00 Unspecified tracheostomy complication (principal); J45.909 Unspecified asthma, uncomplicated; F20.9 Schizophrenia, unspecified; F31.9 Bipolar disorder, unspecified; E11.9 Type 2 diabetes mellitus without complications
CPT/HCPCS: 71045-TC-FY; 99282-25

== ENCOUNTER 2018-12-01 19:59 | Emergency (ER) | payer OTHER ==
[2018-12-01 20:10] VITALS: TEMP 98.4; BMI 51.0
--- NOTE | 2018-12-01 20:44 | PDOC ---
Attending Attestation - HPI HPI: 12/01/18 21:15 The patient is a 23 year old female with a significant past medical history of bipolar, schizophrenia, asthma (with trach), diabetes and reflux who presents to the emergency department via EMS, from [facility] with bilateral leg pain . As per [facility], the patient had been complaining of her bilateral leg pain and swelling for 1 day. The patient describes her leg pain as a shooting, stabbing pain. She denies any trauma. She denies any chest pain or shortness of breath. The patient denies any other symptoms or complaints. Documentation prepared by Kimberly Mancini, acting as medical imaging technologist for Edwin Epperson MD. <Kimberly Mancini - Last Filed: 12/01/18 21:15> - Resident Resident Name: Driss Loera - ED Attending Attestation I have performed the following: I have examined & evaluated the patient, The case was reviewed & discussed with the resident, I agree w/resident's findings & plan, Exceptions are as noted - Physicial Exam PE: 12/01/18 23:09 Bilateral lower extremities symmetric No pitting edema, strength 5/5, SILT Inconsistent tenderness of lower extremities, distractable - Medical Decision Making 12/01/18 23:12 No signs of edema, dvt less likely, no signs of trauma, consider neuropathic px US neg for dvt dc <Edwin Epperson - Last Filed: 12/01/18 23:13>
[2018-12-01 21:39] LABS: HEMATOCRIT 36.2 % (32.4-45.2); HEMOGLOBIN 12.3 GM/dL (10.7-15.3); MEAN PLT VOLUME 8.4 fl (7.5-11.1); PLATELET COUNT 321 K/MM3 (134-434); RBC 3.85 M/mm3 (3.60-5.2); RDW 14.3 % (11.6-15.6)
[2018-12-01 21:59] LABS: ANION GAP 11 MMOL/L (8-16); BLOOD UREA NITROGEN 7 mg/dL (7-18); CALCIUM 8.8 mg/dL (8.5-10.1); CHLORIDE 115 mmol/L (98-107); CO2 19 mmol/L (21-32); CREATININE 0.9 mg/dL (0.55-1.3); GLUCOSE,RANDOM 136 mg/dL (74-106); POTASSIUM 3.6 mmol/L (3.5-5.1); SODIUM 144 mmol/L (136-145)
--- NOTE | 2018-12-01 22:21 | PDOC ---
History of Present Illness - General Chief Complaint: Edema Stated Complaint: leg pain Time Seen by Provider: 12/01/18 20:13 History Source: Patient, Alf Records - History of Present Illness Initial Comments: 12/01/18 22:22 Patient is 23F coming from [facility] here today with history of DM, schizophrenia , bipolar disease, asthma s/p trach here today complaining of bilateral leg pain that started this morning. Denies fevers, chills, nausea, vomiting. Denies chest pain and shortness of breath. Denies trauma. Patient is able to give history despite trach. group home called, states that patient is tachy to about 110 at baseline and was sent in for the pain described by the patient in her leg. Concern was for DVT vs cellulitis. Past History - Past Medical History Allergies/Adverse Reactions: Allergies Allergy/AdvReac Type Severity Reaction Status Date / Time clonazepam [From Klonopin] Allergy Verified 12/01/18 20:11 olanzapine [From Zyprexa] Allergy Verified 12/01/18 20:11 peanut Allergy Verified 12/01/18 20:11 ziprasidone [From Geodon] Allergy Verified 12/01/18 20:11 Home Medications: Ambulatory Orders Clonazepam 1 tab PO BID 05/29/18 Depakote 500 mg PO BID 05/29/18 Depo-Provera 1 ml IM MONTHLY 05/29/18 Desmopressin Acetate 1 tab PO HS 05/29/18 Fluticasone Propionate [Flovent Diskus] 100 mcg IH BID 05/29/18 Ipratropium 0.02% Nebulizer 2.5 ml NEB PRN 05/29/18 [place] Carbonate [Lithobid] 1 tab PO DAILY 05/29/18 Magnesium Hydroxide [Milk of Magnesia] 400 mg PO PRN 05/29/18 Pantoprazole Sodium [Protonix -] 40 mg PO DAILY 05/29/18 Sennosides [Senna Lax] 2 tab PO HS 05/29/18 Topiramate [Topamax] 50 mg PO BID 05/29/18 Clozapine [Clozapine Odt] 2 tab PO BID 05/30/18 [place] Carbonate [Eskalith -] 450 mg PO HS tablet.er 05/31/18 Acetaminophen [Pain Relief] 650 mg PO PRN PRN 08/12/18 Divalproex Sodium [Depakote] 250 mg PO DAILY 08/12/18 Ibuprofen [Advil -] 200 mg PO QID PRN 08/12/18 Methyl Salicylate/Menth/Camph [[place] Ultra Strength Cream] 57 gm TP BID Metoprolol Succinate 25 mg PO DAILY 08/12/18 COPD: No Diabetes: Yes GI Disorders: Yes (reflux) Psychiatric Problems: Yes (schizophrenia, bipolar) - Suicide/Smoking/Psychosocial Hx Smoking History: Never smoked Have you smoked in the past 12 months: No Information on smoking cessation initiated: No Hx Alcohol Use: No Drug/Substance Use Hx: No Review of Systems - Review of Systems Comments:: 12/01/18 22:27 GENERAL/CONSTITUTIONAL: No fever or chills. No weakness. HEAD, EYES, EARS, NOSE AND THROAT: No change in vision. No ear pain or discharge. No sore throat. CARDIOVASCULAR: No chest pain or shortness of breath RESPIRATORY: No cough, wheezing, or hemoptysis. GASTROINTESTINAL: No nausea, vomiting, diarrhea or constipation. GENITOURINARY: No dysuria, frequency, or change in urination. MUSCULOSKELETAL: No joint or muscle swelling or pain. No neck or back pain. SKIN: No rash NEUROLOGIC: No headache, vertigo, loss of consciousness, or change in strength/ sensation. ENDOCRINE: No increased thirst. No abnormal weight change HEMATOLOGIC/LYMPHATIC: No anemia, easy bleeding, or history of blood clots. ALLERGIC/IMMUNOLOGIC: No hives or skin allergy. *Physical Exam - Vital Signs Last Vital Signs Temp Pulse Resp BP Pulse Ox 98.4 F 115 H 22 H 110/92 99 12/01/18 19:59 12/01/18 19:59 12/01/18 19:59 12/01/18 19:59 12/01/18 19:59 - Physical Exam Comments: 12/01/18 22:27 GENERAL: Awake, alert, and fully oriented, in no acute distress HEAD: No signs of trauma, normocephalic, atraumatic EYES: PERRLA, EOMI, sclera anicteric, conjunctiva clear ENT: Auricles normal inspection, hearing grossly normal, nares patent, oropharynx clear without exudates. Moist mucosa NECK: Normal ROM, supple, no lymphadenopathy, JVD, or masses LUNGS: No distress, speaks full sentences, clear to auscultation bilaterally HEART: Tachycardic, normal S1 and S2, no murmurs, rubs or gallops, peripheral pulses normal and equal bilaterally. ABDOMEN: Soft, nontender, normoactive bowel sounds. No guarding, no rebound. No masses LEGS: Diffusely tender to legs and feet, but distractable and not consistent. No edema. Normal DP pulses. NEUROLOGICAL: Cranial nerves II through XII grossly intact. Normal speech, no focal sensorimotor deficits SKIN: Warm, Dry, normal turgor, no rashes or lesions noted. Moderate Sedation - Procedure Monitoring Vital Signs: Procedure Monitoring Vital Signs Temperature 98.4 F 12/01/18 19:59 Pulse Rate 115 H 12/01/18 19:59 Respiratory Rate 22 H 12/01/18 19:59 Blood Pressure 110/92 12/01/18 19:59 O2 Sat by Pulse Oximetry (%) 99 12/01/18 19:59 ED Treatment Course - LABORATORY CBC & Chemistry Diagram: 12/01/18 21:23 12/01/18 21:23 - ADDITIONAL ORDERS Additional order review: Laboratory Results 12/01/18 12/01/18 21:23 21:23 Sodium 144 Potassium 3.6 Chloride 115 H Carbon Dioxide 19 L Anion Gap 11 BUN 7 Creatinine 0.9 Creat Clearance w eGFR > 60 Random Glucose 136 H Calcium 8.8 Serum , Qual Negative 12/01/18 21:23 RBC 3.85 MCV 94.0 MCHC 34.0 RDW 14.3 MPV 8.4 - RADIOLOGY Radiology Studies Ordered: Category Date Time Status DUPLEX VASCUL US-2LEGS [US] Stat Ultrasound 12/01/18 20:40 Ordered - Medications Given in the ED: ED Medications Discontinued Medications Generic Name Dose Route Start Last Admin Trade Name Freq PRN Reason Stop Dose Admin Oxycodone/Acetaminophen 1 combo 12/01/18 20:39 12/01/18 20:56 Percocet 5/325 - PO 12/01/18 20:40 1 combo ONCE ONE Administration Medical Decision Making - Medical Decision Making 12/01/18 22:28 Patient is 23F with history of DM, schizophrenia, bipolar disorder, asthma s/p trach here today complaining of leg pain. Vitals notable for tachycardia, at baseline per detention. Legs show no signs of infection. DVT us normal. Basic labs reassuring. Believe patient most likely has diabetic neuropathy. Will discharge home. *DC/Admit/Observation/Transfer Diagnosis at time of Disposition: Leg pain - Discharge Dispostion Disposition: HOME Condition at time of disposition: Good Decision to Admit order: No - Referrals Referrals: Madhav Quinones MD [Primary Care Provider] - - Patient Instructions Printed Discharge Instructions: DI for Leg Pain Additional Instructions: Please follow up with your primary care doctor this week. Please return if you have any new, worsening or concerning symptoms, especially increasing pain, fever and redness. - Post Discharge Activity
[2018-12-02 02:15] VITALS: BP 112/80; PULSE 88
== END 2018-12-02 02:13 | disposition home or self-care (01) ==
LOC: JER 19:59
DX: E11.40 Type 2 diabetes mellitus with diabetic neuropathy, unspecified (principal); K21.9 Gastro-esophageal reflux disease without esophagitis; F41.9 Anxiety disorder, unspecified; F20.9 Schizophrenia, unspecified; J45.909 Unspecified asthma, uncomplicated
CPT/HCPCS: 36415; 80048; 84703; 85027; 93970-TC; 99281-25; 99282-25